=== PATIENT | female | born 1990 | race Caucasian/White ===

== ENCOUNTER 2018-03-26 05:01 | Inpatient (IN) | payer OTHER ==
[~2018-03-26] VITALS: Ht 157.5 cm; Wt 91.4 kg
[~2018-03-26 05:01] MED LIST: COLACE100 MG PO; DULCOLAX5 MG PO; ENDOCET 5-3251 EACH PO; IBUPROFEN800 MG PO; KEFLEX500 MG PO; LINZESS145 MCG PO; LORTAB 5-325 M1 EACH PO; MACROBID100 MG PO; MILK OF MAGN PO; MOTRIN600 MG PO; MULTIPLE VITAM1 EAC1 PO; NAPROXEN500 MG PO; PERCOCET 5/31 TABLET PO; PROGESTERONE200 MG PO; TYLENOL REGULA325 MG PO
[2018-03-26 05:29] VITALS: BP 123/63
[2018-03-26 05:31] VITALS: BP 123/63
[2018-03-26 05:59] LABS: BASOPHIL (%) 0.6 % (0-1); BASOPHIL COUNT 0.1 K/uL (0-0.1); EOSINOPHIL (%) 1.6 % (0-5); EOSINOPHIL COUNT 0.2 K/uL (0-0.3); HEMATOCRIT 35.5 % (36.0-46.0); HEMOGLOBIN 11.8 G/DL (11.9-15.5); IMMATURE GRANULOCYTE (%) 0.3 % (0.0-0.7); LYMPHOCYTE (%) 34.2 % (15-42); LYMPHOCYTE COUNT 3.4 K/uL (1.0-2.8); MCHC 33.2 G/DL (30.0-36.0); MCV 90.3 FL (83-99); MONOCYTE (%) 5.7 % (3-12); MONOCYTE COUNT 0.6 K/uL (0-0.8); NEUTROPHIL (%) 57.6 % (45-76); NEUTROPHIL COUNT 5.8 K/uL (1.8-6.4); PLATELET COUNT 234 K/uL (156-360); RBC DIS.WIDTH-CV 12.4 % (11.8-14.6); RBC DIS.WIDTH-SD 41.1 % (39-53); RED BLOOD COUNT 3.93 M/uL (3.80-5.20)
[2018-03-26 06:15] LABS: ALBUMIN 3.3 g/dL (3.2-4.8); CHLORIDE 107 mEq/L (99-109); POTASSIUM 3.4 mEq/L (3.7-5.4); SODIUM 137 mEq/L (136-147)
[2018-03-26 06:17] LABS: GLUCOSE 64 mg/dL (70-99); TOTAL PROTEIN 6.5 g/dL (6.4-8.3)
[2018-03-26 06:19] VITALS: BP 118/73
[2018-03-26 06:19] LABS: TOTAL BILIRUBIN 0.6 mg/dL (0.0-1.0)
[2018-03-26 06:21] LABS: ALKALINE PHOSPHATASE 218 IU/L (3-129); CREATININE 0.9 mg/dL (0.6-1.3); GFR ESTIMATE (CALCULATED) > 59 mL/min/
[2018-03-26 06:22] LABS: UREA NITROGEN (BUN) 14 mg/dL (9-23)
[2018-03-26 06:23] LABS: AST (GOT) 13 IU/L (2-34)
[2018-03-26 06:24] LABS: ALT (GPT) 6 IU/L (3-49)
[2018-03-26 08:44] LABS: AMPHETAMINE NEGATIVE (500 ng/mL); BARBITURATES NEGATIVE (200 ng/mL); BENZODIAZEPINES NEGATIVE (150 ng/mL); BUPRENORPHINE NEGATIVE (10 ng/mL); COCAINE NEGATIVE (150 ng/mL); METHADONE NEGATIVE (200 ng/mL); METHAMPHETAMINE NEGATIVE (500 ng/mL); OPIATES (MORPHINE) NEGATIVE (100 ng/mL); OXYCODONE NEGATIVE (100 ng/mL); PHENCYCLIDINE NEGATIVE (25 ng/mL); PROPOXYPHENE NEGATIVE (300 ng/mL); THC CANNABINOIDS NEGATIVE (50 ng/mL); TRICYCLIC ANTIDEPRESSANTS NEGATIVE (300 ng/mL)
[2018-03-26 13:00] VITALS: BP 119/77
[2018-03-26 16:11] LABS: BASOPHIL (%) 0.2 % (0-1); EOSINOPHIL (%) 0 % (0-5); HEMATOCRIT 31.6 % (36.0-46.0); HEMOGLOBIN 10.2 G/DL (11.9-15.5); IMMATURE GRANULOCYTE (%) 0.2 % (0.0-0.7); LYMPHOCYTE (%) 9.9 % (15-42); MCH 29.4 PG (29.0-34.0); MCHC 32.3 G/DL (30.0-36.0); MCV 91.1 FL (83-99); MONOCYTE (%) 1.4 % (3-12); MONOCYTE COUNT 0.2 K/uL (0-0.8); NEUTROPHIL (%) 88.3 % (45-76); NEUTROPHIL COUNT 9.3 K/uL (1.8-6.4); PLATELET COUNT 207 K/uL (156-360); RBC DIS.WIDTH-CV 12.4 % (11.8-14.6); RBC DIS.WIDTH-SD 40.7 % (39-53); RED BLOOD COUNT 3.47 M/uL (3.80-5.20); WHITE BLOOD COUNT 10.5 K/uL (4.1-10.2)
[2018-03-26 16:20] LABS: CHLORIDE 108 MEQ/L (99-109); POTASSIUM 3.9 MEQ/L (3.7-5.4); SODIUM 135 MEQ/L (136-147)
[2018-03-26 16:26] LABS: CREATININE 0.8 MG/DL (0.6-1.3); GFR ESTIMATE (CALCULATED) > 59 mL/min/; UREA NITROGEN (BUN) 12 mg/dL (9-23)
[2018-03-26 16:35] LABS: GLUCOSE 96 mg/dL (70-99)
[2018-03-26 19:25] VITALS: BP 111/59
[2018-03-26 23:00] VITALS: BP 106/52
[2018-03-27 03:15] VITALS: BP 113/55
[2018-03-27 06:23] LABS: BASOPHIL (%) 0.3 % (0-1); EOSINOPHIL (%) 0.8 % (0-5); EOSINOPHIL COUNT 0.1 K/uL (0-0.3); HEMATOCRIT 25.9 % (36.0-46.0); HEMOGLOBIN 8.3 G/DL (11.9-15.5); IMMATURE GRANULOCYTE (%) 0.2 % (0.0-0.7); LYMPHOCYTE (%) 34.7 % (15-42); MCH 29.5 PG (29.0-34.0); MCV 92.2 FL (83-99); MONOCYTE (%) 7.4 % (3-12); MONOCYTE COUNT 0.7 K/uL (0-0.8); NEUTROPHIL (%) 56.6 % (45-76); NEUTROPHIL COUNT 4.9 K/uL (1.8-6.4); PLATELET COUNT 184 K/uL (156-360); RBC DIS.WIDTH-CV 12.5 % (11.8-14.6); RBC DIS.WIDTH-SD 41.9 % (39-53); RED BLOOD COUNT 2.81 M/uL (3.80-5.20); WHITE BLOOD COUNT 8.7 K/uL (4.1-10.2)
[2018-03-27 07:30] VITALS: BP 105/50
[2018-03-27 10:52] VITALS: BP 112/56
[2018-03-27 15:35] VITALS: BP 128/56
[2018-03-28 07:00] VITALS: BP 111/65
[2018-03-28] MEDS ORDERED: ENDOCET 5-3251 EACH PO (11:57)
[2018-03-28] MEDS ORDERED: CHROMAGEN,1 CAPSULE PO (11:57)
[2018-03-28] MEDS ORDERED: IBUPROFEN800 MG PO (11:57)
== END 2018-03-28 13:05 | disposition home or self-care (01) | DRG 765 ==
LOC: 2WEST 05:01 → 2SOUTH 15:32 → 2WEST 03-28 13:05
PROVIDERS: Obstetrics & Gynecology
PROC: 10D00Z1 Extraction of Products of Conception, Low, Open Approach (ICD-10-PCS; principal; 2018-03-26)
DX: O34.212 Maternal care for vertical scar from previous cesarean delivery (principal); N85.8 Other specified noninflammatory disorders of uterus; O99.02 Anemia complicating childbirth; D62 Acute posthemorrhagic anemia; O26.03 Excessive weight gain in pregnancy, third trimester; O69.82X0 Labor and delivery complicated by other cord entanglement, without compression, not applicable or unspecified; Z3A.37 37 weeks gestation of pregnancy; Z37.0 Single live birth; Z87.891 Personal history of nicotine dependence
CPT/HCPCS: 80048 91; 80053; 85025; 85025 91; 86850; 86900; 86901; J1580; J1885; J2274; J2405; J7030; J7050; J7120